=== PATIENT | male | born 1990 | race Caucasian/White ===

== ENCOUNTER 2022-01-19 09:05 | Outpatient (CLI) | payer OTHER, SELFPAY ==
--- NOTE | 2022-01-19 09:15 | MR_ITS ---
[address] [address] Phone:?[phone] Fax:?[phone] Referring Physician Information: Brody Jane M.D. [id number] [facility] [address] Phone:?[phone] Fax:?[phone] Patient:Marcus Méndez D.O.B:?1990 Sex:?Male Phone:?[phone] [facility] MRN:?[id number] Exam Date:?01/19/2022 ? EXAM: MRI of the LEFT SHOULDER, without contrast CLINICAL INFORMATION: Male, 31 years old, with shoulder pain, worsening. INDICATION: Evaluate for rotator cuff tear. PRIOR SURGERY: None reported. PLAIN FILMS: None available. COMPARISONS: No prior MRIs available. TECHNICAL INFORMATION: Using a 1.5T MR scanner and a localizing surface coil: Coronals: PD, T2, STIR Sagittals: PD, T2 Axials: PD, T2 SEDATION: None CONTRAST: None FINDINGS: Bones: Proximal humerus: No fracture or marrow edema/pathology. No humeral Hill-Sachs or reverse Hill-Sachs lesion/impaction or contusion. Glenoid: No fracture or marrow edema/pathology. No osseous Bankart lesion. Rotator cuff and muscles/tendons: Supraspinatus: Mild supraspinatus tendinosis with low-grade bursal sided fraying anteriorly. No discrete rotator cuff tear or muscle belly atrophy. Infraspinatus: Mild tendinopathy, without tear or atrophy. Teres minor: No tendinopathy, tear or atrophy. Subscapularis: No tendinopathy, tear or atrophy. Deltoid: No strain or atrophy. Coracoacromial arch: Acromion morphology: The acromion has type II morphology. No discrete subacromial osseous spur or os acromiale. Inferiorly prominent acromial attachment of the coracoacromial ligament narrows the acromiohumeral space, measuring 5 mm. Coracohumeral space: The coracohumeral space is within normal limits. Acromioclavicular joint: Joint: Mild AC joint arthrosis with mild inferior osteophytosis. There is relatively prominent appearance of marrow edema within the distal clavicle with subchondral endplate irregularity (coronal series 4 image 8, and axial series 3.1 image 7). Mild capsular thickening and edema. The adjacent acromion is normal in marrow signal. Ligaments: Coracoclavicular ligaments are intact. Bursae: Subacromial-subdeltoid: Trace subacromial bursal thickening/bursitis. Subcoracoid: No convincing subcoracoid bursal thickening/bursitis. Biceps tendon: The long head of the biceps tendon is present within the bicipital groove. The intra-articular and extra-articular segments are intact without tendinosis, tenosynovitis, or displacement. Glenohumeral joint: Effusion/cyst: No significant glenohumeral joint effusion. Articular cartilage: Humeral head: No osteochondral abnormalities. Glenoid: No osteochondral abnormalities. Loose bodies: No discrete intra-articular body within the joint. Labrum:?No discrete SLAP tear. No other definite evidence for labral tear. No paralabral ganglion cyst is identified. Inferior glenohumeral ligament/axillary pouch:?Intact. The axillary pouch is normal in thickness and signal. No evidence of adhesive capsulitis or capsular injury. IMPRESSION: 1. Mild supraspinatus and infraspinatus tendinosis without rotator cuff tear. 2. No labral tear or paralabral cyst. 3. No tendinopathy, tear, or displacement of the long head of the biceps tendon. 4. Downsloping morphology of the distal acromion along with inferiorly prominent acromial attachment of the coracoacromial ligament contribute to mild narrowing of the subacromial space. Trace subacromial bursitis. 5. Mild AC joint arthrosis. Relatively prominent appearance of marrow edema and subchondral bone plate irregularity in the distal clavicle compared to the acromion may reflect changes of early distal clavicle osteolysis. 6. No osteochondral defect. KME Electronically signed on 01/19/2022 12:30:00 PM by Alva Claros M.D.
== END 2022-01-19 09:06 | disposition home or self-care (01) ==
LOC: MRI 09:06
PROVIDERS: Visit Provider Orthopaedic Surgery
DX: M25.512 Pain in left shoulder (principal); M19.012 Primary osteoarthritis, left shoulder
CPT/HCPCS: 73221

== ENCOUNTER 2022-06-01 09:15 | Outpatient (RCR) | payer OTHER, SELFPAY | END 2022-07-06 14:29 | disposition home or self-care (01) | PROVIDERS: PCP Family Medicine; Visit Provider Orthopaedic Surgery | DX: M75.52 Bursitis of left shoulder (principal); Z51.89 Encounter for other specified aftercare | CPT/HCPCS: 97110; 97162 ==